=== PATIENT | male | born 1980 | race Asian ===

== ENCOUNTER 2017-07-22 20:37 | Emergency (ER) | payer BC ==
[~2017-07-22] VITALS: Ht 167.6 cm; Wt 66.0 kg
[2017-07-22] MEDS ORDERED: KETOROLAC TROMETHAMINE 30 MG/ML VIAL IM ONE (21:30)
[2017-07-22] MEDS ORDERED: METOCLOPRAMIDE HCL 5 MG/ML 2 ML VIAL IM ONE (21:30)
[2017-07-22] MEDS ORDERED: DiphenhydrAMINE HCL 50 MG/ML VIAL IM ONE (21:30)
[2017-07-22 22:20] VITALS: BP 131/86
== END 2017-07-22 22:51 | disposition home or self-care (01) ==
LOC: EMS 20:40
DX: R51 Headache (principal)
CPT/HCPCS: 70450; 96372; 99284; J1200; J1885; J2765